=== PATIENT | male | born 2000 | race Caucasian/White ===

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

== ENCOUNTER 2022-12-03 15:16 | Emergency (ER) | payer MEDICAID ==
[~2022-12-03] VITALS: Ht 172.7 cm; Wt 55.3 kg
[2022-12-03 16:47] VITALS: BP 108/71
[2022-12-03 17:34] LABS: Urine Bacteria NONE SEEN /hpf (None Seen); Urine Blood Negative /uL (Negative); Urine Specific Gravity 1.003 (1.001-1.035); Urine WBC <1 /hpf (0 - 3)
[2022-12-03] MEDS ORDERED: METH-1182 PO (18:05)
[2022-12-03] MEDS ORDERED: IBUP-1456 PO (18:05)
== END 2022-12-03 18:16 | disposition home or self-care (01) ==
LOC: ER 15:16
DX: S39.012A Strain of muscle, fascia and tendon of lower back, initial encounter (principal); G89.29 Other chronic pain; Z79.1 Long term (current) use of non-steroidal anti-inflammatories (NSAID); Z79.899 Other long term (current) drug therapy; X58.XXXA Exposure to other specified factors, initial encounter; Y93.89 Activity, other specified; Y92.096 Garden or yard of other non-institutional residence as the place of occurrence of the external cause; Y99.8 Other external cause status
CPT/HCPCS: 72100; 81001